=== PATIENT | male | born 1950 | race Caucasian/White ===

== ENCOUNTER 2017-08-28 11:13 | Emergency (ER) | payer OTHER ==
[~2017-08-28] VITALS: Ht 188 cm; Wt 99.8 kg
[~2017-08-28 11:13] MED LIST: AMIT10 PO; ASPI81EC PO; Cardura8 MG PO; Coumadin5 MG PO; DICL75ER PO; DOXA1 PO; FLUO20 PO; LEVSOD50 PO; LISI20 PO; LISI5 PO; ONDA8ODT MM; PANT40 PO; PREG50 PO; SAW PALMETTO PO; SUMA25 PO; Synthroid25 MCG PO; TERA5 PO; TRAZ50 PO; WARF5 PO; WARF7.5 PO
[2017-08-28 12:21] LABS: BASOPHILS ABSOLUTE AUTO 0.02 K/mm3 (0.00-0.23); BASOPHILS PERCENT AUTO 0 % (0-2); EOSINOPHILS ABSOLUTE AUTO 0.01 K/mm3 (0.00-0.68); EOSINOPHILS PERCENT AUTO 0 % (0-6); Hematocrit 41.1 % (37.0-53.0); Hemoglobin 13.5 g/dL (13.5-17.5); IMMATURE GRAN ABSOLUTE AUTO 0.03 K/mm3 (0.00-0.10); IMMATURE GRAN PERCENT AUTO 0 % (0-1); LYMPHOCYTES PERCENT AUTO 18 % (21-46); MONOCYTES ABSOLUTE AUTO 0.57 K/mm3 (0.16-1.47); MONOCYTES PERCENT AUTO 7 % (4-13); Mean Corpuscular HGB 27.6 pg (26.0-34.0); Mean Corpuscular HGB Conc 32.8 g/dL (31.5-36.5); Mean Corpuscular Volume 84 fL (80-100); Mean Platelet Volume 8.8 fL (9.1-12.4); NEUTROPHILS ABSOLUTE AUTO 6.36 K/mm3 (1.96-9.15); NEUTROPHILS PERCENT AUTO 75 % (41-73); Platelet Count 227 K/mm3 (150-400); RDW Coefficient Variation 14.7 % (11.7-14.2); RDW Standard Deviation 44.1 fL (35.1-46.3); White Blood Cell Count 8.49 K/mm3 (4.00-11.30)
[2017-08-28 12:37] LABS: International Normalized Ratio 1.91; Prothrombin Time Results 20.3 Sec (9.7-11.5)
[2017-08-28 12:45] LABS: Alanine Aminotransfer (ALT/SGP 18 U/L (12-78); Albumin, Blood 3.4 g/dL (3.4-5.0); Alk Phos 59 U/L (50-136); Anion Gap 8 mmol/L (6-16); Aspartate Aminotrans (AST/SGOT 10 U/L (12-37); Bilirubin, Total 0.5 mg/dL (0.1-1.0); Blood Urea Nitrogen 17 mg/dL (8-24); Bun/Creatinine Ratio 16.3 (12.0-20.0); CO2, Blood 22 mmol/L (21-32); Calcium, Blood 8.3 mg/dL (8.5-10.1); Chloride, Blood 111 mmol/L (98-108); Creatinine, Blood 1.04 mg/dL (0.60-1.20); Globulin, Blood 3.5 g/dL (2.2-4.0); Glomerular Filtration Rate >60 (60-); Glucose, Blood 124 mg/dL (70-99); Potassium, Blood 3.9 mmol/L (3.5-5.5); Sodium, Blood 141 mmol/L (136-145); Total Protein, Blood 6.9 g/dL (6.4-8.2)
[2017-08-28 12:46] LABS: Troponin I <0.015 ng/mL (0.000-0.040)
== END 2017-08-28 13:43 | disposition home or self-care (01) ==
LOC: ER 11:13
PROVIDERS: Emergency Medicine
DX: F41.9 Anxiety disorder, unspecified (principal); R79.1 Abnormal coagulation profile; I10 Essential (primary) hypertension; Z88.8 Allergy status to other drugs, medicaments and biological substances; Z91.030 Bee allergy status; Z79.899 Other long term (current) drug therapy; Z79.01 Long term (current) use of anticoagulants
CPT/HCPCS: 36415; 71046; 80053; 83880; 84484; 85025; 85610; 85730; 93005; 93010; 99284

== ENCOUNTER → 2018-04-23 | Outpatient (CLI) | payer OTHER | END | disposition home or self-care (01) | LOC: PLD 14:10 → LAB SHORT 14:10 | DX: C44.310 Basal cell carcinoma of skin of unspecified parts of face (principal) | CPT/HCPCS: 88305 ==

== ENCOUNTER 2018-06-23 13:00 | Emergency (ER) | payer OTHER ==
[~2018-06-23] VITALS: Ht 188 cm; Wt 90.7 kg
[2018-06-23 14:47] LABS: BASOPHILS ABSOLUTE AUTO 0.04 K/mm3 (0.00-0.23); BASOPHILS PERCENT AUTO 1 % (0-2); EOSINOPHILS ABSOLUTE AUTO 0.09 K/mm3 (0.00-0.68); EOSINOPHILS PERCENT AUTO 1 % (0-6); Hematocrit 45.7 % (37.0-53.0); Hemoglobin 14.9 g/dL (13.5-17.5); IMMATURE GRAN ABSOLUTE AUTO 0.02 K/mm3 (0.00-0.10); IMMATURE GRAN PERCENT AUTO 0 % (0-1); LYMPHOCYTES ABSOLUTE AUTO 1.53 K/mm3 (0.84-5.20); LYMPHOCYTES PERCENT AUTO 23 % (21-46); MONOCYTES ABSOLUTE AUTO 0.54 K/mm3 (0.16-1.47); MONOCYTES PERCENT AUTO 8 % (4-13); Mean Corpuscular HGB 28.1 pg (26.0-34.0); Mean Corpuscular HGB Conc 32.6 g/dL (31.5-36.5); Mean Corpuscular Volume 86 fL (80-100); Mean Platelet Volume 8.4 fL (9.1-12.4); NEUTROPHILS ABSOLUTE AUTO 4.31 K/mm3 (1.96-9.15); NEUTROPHILS PERCENT AUTO 66 % (41-73); Platelet Count 248 K/mm3 (150-400); RDW Coefficient Variation 13.7 % (11.7-14.2); RDW Standard Deviation 43.3 fL (35.1-46.3); Red Blood Cell Count 5.31 M/mm3 (4.30-5.90); White Blood Cell Count 6.53 K/mm3 (4.00-11.30)
[2018-06-23 15:01] LABS: International Normalized Ratio 2.13; Prothrombin Time Results 21.1 Sec (9.7-11.5)
[2018-06-23 15:07] LABS: Alanine Aminotransfer (ALT/SGP 19 U/L (12-78); Albumin/Globulin Ratio 1.1 (0.8-1.8); Alk Phos 76 U/L (50-136); Anion Gap 8 mmol/L (6-16); Aspartate Aminotrans (AST/SGOT 12 U/L (12-37); Bilirubin, Total 0.4 mg/dL (0.1-1.0); Blood Urea Nitrogen 15 mg/dL (8-24); Bun/Creatinine Ratio 14.2 (12.0-20.0); CO2, Blood 23 mmol/L (21-32); Chloride, Blood 108 mmol/L (98-108); Creatinine, Blood 1.06 mg/dL (0.60-1.20); Globulin, Blood 3.8 g/dL (2.2-4.0); Glomerular Filtration Rate >60 (60-); Glucose, Blood 100 mg/dL (70-99); Potassium, Blood 4.2 mmol/L (3.5-5.5); Sodium, Blood 139 mmol/L (136-145); Total Protein, Blood 7.8 g/dL (6.4-8.2)
[2018-06-23] MEDS ORDERED: MONT4 PO (15:42)
[2018-06-23] MEDS ORDERED: Norco 5-325 Ta1 EACH PO (16:06)
[2018-06-23] MEDS ORDERED: Valium5 MG PO (16:06)
== END 2018-06-23 16:20 | disposition home or self-care (01) ==
LOC: ER 13:00
PROVIDERS: Physician Assistant
DX: J06.9 Acute upper respiratory infection, unspecified (principal); M54.89 Other dorsalgia; I10 Essential (primary) hypertension; Z79.899 Other long term (current) drug therapy; Z79.01 Long term (current) use of anticoagulants
CPT/HCPCS: 36415; 71046; 80053; 85025; 85379; 85610; 93005; 93010; 99285-25

== ENCOUNTER → 2018-10-23 | Outpatient (CLI) | payer OTHER ==
[~2018-10-23] MED LIST changes: +CIPR500 PO; +Imitrex100 MG PO; +Kristalose20 GM PO; +MIRALAX17 GM PO; +MONT10T PO; +MONT4 PO; +Norco 5-325 Ta1 EACH PO; +Valium5 MG PO
== END | disposition home or self-care (01) ==
LOC: LAB 11:55 → LAB SHORT 11:55
DX: R39.11 Hesitancy of micturition (principal)
CPT/HCPCS: 87077; 87086; 87186

== ENCOUNTER 2018-10-25 08:42 | Emergency (ER) | payer OTHER ==
[~2018-10-25] VITALS: Ht 188 cm; Wt 90.7 kg
[~2018-10-25 08:42] MED LIST changes: -CIPR500 PO; -Imitrex100 MG PO; -Kristalose20 GM PO; -MIRALAX17 GM PO; -MONT10T PO
[2018-10-25 09:44] LABS: Source, Urine Clean Catch
[2018-10-25 09:49] LABS: Bilirubin, Urine Neg (Neg); Blood, Urine 3+ (Neg); Glucose Qualitative, Urine Neg (Neg); Ketones, Urine Neg (Neg); Leukocyte Esterase, Urine Neg (Neg); Nitrite, Urine Neg (Neg); Protein, Urine 2+ (Neg); Specific Gravity, Urine 1.015 (1.003-1.022); Urobilinogen, Urine NORM (Normal)
[2018-10-25 09:54] LABS: Appearance, Urine Clear (Clear); Color, Urine Yellow (P-Yellow)
[2018-10-25 09:57] LABS: Squamous Epithelial Cells Rare /hpf (Few)
[2018-10-25 09:58] LABS: Bacteria Rare /hpf
[2018-10-25] MEDS ORDERED: CIPR500 PO (10:51)
[2018-10-25] MEDS ORDERED: MIRALAX17 GM PO (10:53)
[2018-10-25] MEDS ORDERED: Kristalose20 GM PO (10:53)
[2019-01-08] MEDS ORDERED: Imitrex100 MG PO (09:17)
[2019-01-08] MEDS ORDERED: LISI20 PO (09:18)
[2019-01-08] MEDS ORDERED: MONT10T PO (09:18)
== END 2018-10-25 11:15 | disposition home or self-care (01) ==
LOC: ER 08:42
PROVIDERS: Emergency Medicine
DX: N39.0 Urinary tract infection, site not specified (principal); R31.9 Hematuria, unspecified; D68.9 Coagulation defect, unspecified; K59.00 Constipation, unspecified; N40.0 Benign prostatic hyperplasia without lower urinary tract symptoms; I10 Essential (primary) hypertension; Z91.038 Other insect allergy status; Z88.8 Allergy status to other drugs, medicaments and biological substances; Z79.01 Long term (current) use of anticoagulants; Z79.899 Other long term (current) drug therapy; Z86.711 Personal history of pulmonary embolism; Z86.718 Personal history of other venous thrombosis and embolism
CPT/HCPCS: 51798; 81001; 87086; 99283-25

== ENCOUNTER 2019-01-23 09:55 | Day surgery (SDC) | payer OTHER ==
[~2019-01-23] VITALS: Ht 188 cm; Wt 83.1 kg
[~2019-01-23 09:55] MED LIST changes: +CIPR500 PO; +Imitrex100 MG PO; +Kristalose20 GM PO; +MIRALAX17 GM PO; +MONT10T PO
--- NOTE | 2019-01-23 13:22 | NUR ---
01/23/19 1321 Guera Gutierrez CALLED AND LEFT VOICEMAIL AT DR IYER OFFICE THAT PT IS TO COME IN AT [address] GOLDSMITH FOR DRAIN REMOVAL. . PT IS NOTIFIED WELL.
== END 2019-01-23 13:42 | disposition home or self-care (01) ==
LOC: ORSCSDS 09:55
PROVIDERS: Orthopaedic Surgery
PROC: 0JBG0ZZ Excision of Right Lower Arm Subcutaneous Tissue and Fascia, Open Approach (ICD-10-PCS; principal; 2019-01-23 11:15)
DX: M25.511 Pain in right shoulder (principal); D17.9 Benign lipomatous neoplasm, unspecified; I10 Essential (primary) hypertension; Z79.899 Other long term (current) drug therapy; Z79.01 Long term (current) use of anticoagulants
CPT/HCPCS: 88304; J0690; J1100; J2250; J2370; J2405; J2704; J2710; J3010; J7120

== ENCOUNTER → 2019-02-23 | Outpatient (CLI) | payer OTHER | END | disposition home or self-care (01) | LOC: LAB SHORT 07:59 → PLD 07:59 | DX: D48.5 Neoplasm of uncertain behavior of skin (principal) | CPT/HCPCS: 88305 ==

== ENCOUNTER → 2019-03-17 | Outpatient (CLI) | payer OTHER | END | disposition home or self-care (01) | LOC: LAB SHORT 09:11 → PLD 09:11 | DX: C44.311 Basal cell carcinoma of skin of nose (principal) | CPT/HCPCS: 88305 ==

== ENCOUNTER 2019-07-21 12:24 | Emergency (ER) | payer OTHER ==
[~2019-07-21] VITALS: Ht 188 cm; Wt 90.7 kg
[2019-07-21 13:08] LABS: BASOPHILS ABSOLUTE AUTO 0.03 K/mm3 (0.00-0.23); BASOPHILS PERCENT AUTO 1 % (0-2); EOSINOPHILS ABSOLUTE AUTO 0.19 K/mm3 (0.00-0.68); EOSINOPHILS PERCENT AUTO 4 % (0-6); Hematocrit 42.5 % (37.0-53.0); IMMATURE GRAN ABSOLUTE AUTO 0.01 K/mm3 (0.00-0.10); IMMATURE GRAN PERCENT AUTO 0 % (0-1); LYMPHOCYTES ABSOLUTE AUTO 1.41 K/mm3 (0.84-5.20); LYMPHOCYTES PERCENT AUTO 31 % (21-46); MONOCYTES ABSOLUTE AUTO 0.44 K/mm3 (0.16-1.47); MONOCYTES PERCENT AUTO 10 % (4-13); Mean Corpuscular HGB 28.4 pg (26.0-34.0); Mean Corpuscular HGB Conc 32.9 g/dL (31.5-36.5); Mean Corpuscular Volume 86 fL (80-100); Mean Platelet Volume 9.1 fL (9.1-12.4); NEUTROPHILS PERCENT AUTO 55 % (41-73); Platelet Count 192 K/mm3 (150-400); RDW Coefficient Variation 13.3 % (11.7-14.2); RDW Standard Deviation 41.8 fL (35.1-46.3); Red Blood Cell Count 4.93 M/mm3 (4.30-5.90); White Blood Cell Count 4.58 K/mm3 (4.00-11.30)
[2019-07-21 13:27] LABS: International Normalized Ratio 2.47; Prothrombin Time Results 25.1 Sec (9.7-11.5)
[2019-07-21 13:32] LABS: Alanine Aminotransfer (ALT/SGP 24 U/L (12-78); Albumin, Blood 3.9 g/dL (3.4-5.0); Albumin/Globulin Ratio 1.2 (0.8-1.8); Alk Phos 67 U/L (50-136); Anion Gap 4 mmol/L (6-16); Aspartate Aminotrans (AST/SGOT 17 U/L (12-37); Bilirubin, Total 0.3 mg/dL (0.1-1.0); Blood Urea Nitrogen 18 mg/dL (8-24); Bun/Creatinine Ratio 14.9 (12.0-20.0); CO2, Blood 27 mmol/L (21-32); Calcium, Blood 8.5 mg/dL (8.5-10.1); Chloride, Blood 109 mmol/L (98-108); Creatinine, Blood 1.21 mg/dL (0.60-1.20); Globulin, Blood 3.3 g/dL (2.2-4.0); Glomerular Filtration Rate >60 (60-); Glucose, Blood 107 mg/dL (70-99); Potassium, Blood 3.9 mmol/L (3.5-5.5); Sodium, Blood 140 mmol/L (136-145); Total Protein, Blood 7.2 g/dL (6.4-8.2)
== END 2019-07-21 14:58 | disposition home or self-care (01) ==
LOC: ER 12:24
PROVIDERS: Emergency Medicine
DX: R00.2 Palpitations (principal); R06.02 Shortness of breath; Z91.038 Other insect allergy status; Z88.8 Allergy status to other drugs, medicaments and biological substances; Z79.01 Long term (current) use of anticoagulants; Z79.899 Other long term (current) drug therapy; I10 Essential (primary) hypertension; Z86.718 Personal history of other venous thrombosis and embolism
CPT/HCPCS: 36415; 71045; 80053; 84443; 84484; 85025; 85610; 85730; 93005; 93010; 99285-25

== ENCOUNTER → 2020-08-31 | Outpatient (CLI) | payer OTHER ==
[~2020-08-31] MED LIST changes: -Coumadin5 MG PO; +TELMISARTAN40 MG PO; +WARF4 PO
== END ==
LOC: LAB 11:09 → LAB SHORT 11:09
DX: D48.5 Neoplasm of uncertain behavior of skin (principal); C44.629 Squamous cell carcinoma of skin of left upper limb, including shoulder
CPT/HCPCS: 88305

== ENCOUNTER → 2020-10-05 | Outpatient (CLI) | payer OTHER | END | disposition home or self-care (01) | LOC: LAB SHORT 14:35 | DX: C44.629 Squamous cell carcinoma of skin of left upper limb, including shoulder (principal) | CPT/HCPCS: 88305 ==

== ENCOUNTER → 2021-04-25 | Outpatient (CLI) | payer OTHER | LOC: LAB 08:36 → LAB SHORT 08:36 | DX: D48.5 Neoplasm of uncertain behavior of skin (principal); C44.319 Basal cell carcinoma of skin of other parts of face | CPT/HCPCS: 88305 ==

== ENCOUNTER 2021-05-23 20:02 | Emergency (ER) | payer OTHER ==
[~2021-05-23] VITALS: Ht 188 cm; Wt 99.8 kg
[~2021-05-23 20:02] MED LIST changes: +ACET325 PO; +CATAPRES-TTS 11 EAC1 TOP; +CHLO25B PO; +JANTOVEN5 M2; +LEVFLO500 PO; +MIRT30ST PO
[2021-05-23 20:27] LABS: BASOPHILS ABSOLUTE AUTO 0.04 K/mm3 (0.00-0.23); BASOPHILS PERCENT AUTO 1 % (0-2); EOSINOPHILS ABSOLUTE AUTO 0.13 K/mm3 (0.00-0.68); EOSINOPHILS PERCENT AUTO 2 % (0-6); Hematocrit 42.4 % (37.0-53.0); Hemoglobin 14.5 g/dL (13.5-17.5); IMMATURE GRAN ABSOLUTE AUTO 0.04 K/mm3 (0.00-0.10); IMMATURE GRAN PERCENT AUTO 1 % (0-1); LYMPHOCYTES ABSOLUTE AUTO 1.49 K/mm3 (0.84-5.20); LYMPHOCYTES PERCENT AUTO 20 % (21-46); MONOCYTES ABSOLUTE AUTO 0.75 K/mm3 (0.16-1.47); MONOCYTES PERCENT AUTO 10 % (4-13); Mean Corpuscular HGB Conc 34.2 g/dL (31.5-36.5); Mean Corpuscular Volume 85 fL (80-100); Mean Platelet Volume 8.5 fL (9.1-12.4); NEUTROPHILS ABSOLUTE AUTO 5.09 K/mm3 (1.96-9.15); NEUTROPHILS PERCENT AUTO 68 % (41-73); Platelet Count 247 K/mm3 (150-400); RDW Coefficient Variation 12.9 % (11.7-14.2); White Blood Cell Count 7.54 K/mm3 (4.00-11.30)
[2021-05-23 20:48] LABS: Alanine Aminotransfer (ALT/SGP 33 U/L (12-78); Albumin, Blood 3.8 g/dL (3.4-5.0); Alk Phos 75 U/L (50-136); Anion Gap 6 mmol/L (6-16); Aspartate Aminotrans (AST/SGOT 22 U/L (12-37); Bilirubin, Total 0.4 mg/dL (0.1-1.0); Blood Urea Nitrogen 16 mg/dL (8-24); Bun/Creatinine Ratio 15.5 (12.0-20.0); CO2, Blood 25 mmol/L (21-32); Calcium, Blood 8.8 mg/dL (8.5-10.1); Chloride, Blood 100 mmol/L (98-108); Creatinine, Blood 1.03 mg/dL (0.60-1.20); Globulin, Blood 3.8 g/dL (2.2-4.0); Glomerular Filtration Rate >60 (60-); Glucose, Blood 122 mg/dL (70-99); Potassium, Blood 3.7 mmol/L (3.5-5.5); Sodium, Blood 131 mmol/L (136-145); Total Protein, Blood 7.6 g/dL (6.4-8.2)
[2021-05-23 21:05] LABS: International Normalized Ratio 2.14; Prothrombin Time Results 21.4 Sec (9.7-11.5)
[2021-05-23 21:21] LABS: D-Dimer, Quantitative <0.19 mg/L FEU (0.00-0.52)
[2021-05-23 22:13] LABS: Influenza A, PCR NEGATIVE (NEGATIVE); Influenza B, PCR NEGATIVE (NEGATIVE); Resp Syncytial Virus, PCR NEGATIVE (NEGATIVE); SARS-Cov-2 (COVID-19) PCR, MMC NEGATIVE (NEGATIVE)
[2021-05-23 23:04] LABS: CPK Creatine Kinase 38 U/L (39-308)
[2021-05-23 23:10] LABS: Creatine Kinase MB <1.0 ng/mL (0.0-3.6); Creatine Kinase MB Index Unable to Calculate (0.0-4.0)
== END 2021-05-23 23:38 | disposition home or self-care (01) ==
LOC: ER 20:02
PROVIDERS: Emergency Medicine; Physician Assistant
DX: R07.89 Other chest pain (principal); R06.02 Shortness of breath; I10 Essential (primary) hypertension; Z88.8 Allergy status to other drugs, medicaments and biological substances; Z91.038 Other insect allergy status; Z79.899 Other long term (current) drug therapy; Z79.01 Long term (current) use of anticoagulants; Z86.711 Personal history of pulmonary embolism; Z20.822 Contact with and (suspected) exposure to COVID-19
CPT/HCPCS: 0241U; 36415; 71045; 80053; 82550; 82553; 83880; 84484; 85025; 85379; 85610; 85730; 93005; 93010; 99285-25; A9270

== ENCOUNTER 2021-06-08 16:07 | Emergency (ER) | payer OTHER ==
[~2021-06-08] VITALS: Ht 188 cm; Wt 86.2 kg
[2021-06-08 16:27] LABS: BASOPHILS ABSOLUTE AUTO 0.03 K/mm3 (0.00-0.23); BASOPHILS PERCENT AUTO 0 % (0-2); EOSINOPHILS ABSOLUTE AUTO 0.24 K/mm3 (0.00-0.68); EOSINOPHILS PERCENT AUTO 3 % (0-6); Hematocrit 42.8 % (37.0-53.0); Hemoglobin 14.4 g/dL (13.5-17.5); IMMATURE GRAN ABSOLUTE AUTO 0.02 K/mm3 (0.00-0.10); IMMATURE GRAN PERCENT AUTO 0 % (0-1); LYMPHOCYTES ABSOLUTE AUTO 1.82 K/mm3 (0.84-5.20); LYMPHOCYTES PERCENT AUTO 25 % (21-46); MONOCYTES ABSOLUTE AUTO 0.68 K/mm3 (0.16-1.47); MONOCYTES PERCENT AUTO 9 % (4-13); Mean Corpuscular HGB 28.5 pg (26.0-34.0); Mean Corpuscular HGB Conc 33.6 g/dL (31.5-36.5); Mean Corpuscular Volume 85 fL (80-100); Mean Platelet Volume 8.4 fL (9.1-12.4); NEUTROPHILS ABSOLUTE AUTO 4.46 K/mm3 (1.96-9.15); NEUTROPHILS PERCENT AUTO 62 % (41-73); Platelet Count 253 K/mm3 (150-400); RDW Coefficient Variation 12.8 % (11.7-14.2); RDW Standard Deviation 39.1 fL (35.1-46.3); Red Blood Cell Count 5.05 M/mm3 (4.30-5.90); White Blood Cell Count 7.25 K/mm3 (4.00-11.30)
[2021-06-08] MEDS ORDERED: VERAPAMIL PO (16:28)
[2021-06-08] MEDS ORDERED: HYDR10 PO (16:28)
[2021-06-08] MEDS ORDERED: DOXAZOSIN MESYLA8 M2 PO (16:28)
[2021-06-08] MEDS ORDERED: CHLO25B PO (16:30)
[2021-06-08] MEDS ORDERED: LOSA50 PO (16:31)
[2021-06-08 16:48] LABS: Alanine Aminotransfer (ALT/SGP 21 U/L (12-78); Albumin, Blood 3.8 g/dL (3.4-5.0); Albumin/Globulin Ratio 1.1 (0.8-1.8); Alk Phos 80 U/L (50-136); Anion Gap 6 mmol/L (6-16); Aspartate Aminotrans (AST/SGOT 14 U/L (12-37); Bilirubin, Total 0.6 mg/dL (0.1-1.0); Blood Urea Nitrogen 11 mg/dL (8-24); CO2, Blood 23 mmol/L (21-32); Calcium, Blood 8.8 mg/dL (8.5-10.1); Chloride, Blood 102 mmol/L (98-108); Globulin, Blood 3.6 g/dL (2.2-4.0); Glomerular Filtration Rate >60 (60-); Glucose, Blood 111 mg/dL (70-99); Sodium, Blood 131 mmol/L (136-145); Total Protein, Blood 7.4 g/dL (6.4-8.2)
== END 2021-06-08 17:40 | disposition home or self-care (01) ==
LOC: ER 16:07
PROVIDERS: Emergency Medicine
DX: R07.9 Chest pain, unspecified (principal); I10 Essential (primary) hypertension; E03.9 Hypothyroidism, unspecified; Z79.899 Other long term (current) drug therapy; Z88.8 Allergy status to other drugs, medicaments and biological substances; Z91.048 Other nonmedicinal substance allergy status
CPT/HCPCS: 71045; 80053; 83880; 84484; 85025; 93005; 93010; 99285-25

== ENCOUNTER 2021-07-11 08:38 | Day surgery (SDC) | payer OTHER ==
[~2021-07-11] VITALS: Ht 188 cm; Wt 99.0 kg
[~2021-07-11 08:38] MED LIST changes: +DOXAZOSIN MESYLA8 M2 PO; +HYDR10 PO; +LOSA50 PO; +VERAPAMIL PO
[2021-07-11] MEDS ORDERED: ZESTRIL40 M2 PO (09:24)
[2021-07-11 09:42] LABS: BASOPHILS ABSOLUTE AUTO 0.03 K/mm3 (0.00-0.23); BASOPHILS PERCENT AUTO 0 % (0-2); EOSINOPHILS PERCENT AUTO 3 % (0-6); Hematocrit 43.4 % (37.0-53.0); Hemoglobin 14.2 g/dL (13.5-17.5); IMMATURE GRAN ABSOLUTE AUTO 0.02 K/mm3 (0.00-0.10); IMMATURE GRAN PERCENT AUTO 0 % (0-1); LYMPHOCYTES ABSOLUTE AUTO 1.43 K/mm3 (0.84-5.20); LYMPHOCYTES PERCENT AUTO 19 % (21-46); MONOCYTES ABSOLUTE AUTO 0.62 K/mm3 (0.16-1.47); MONOCYTES PERCENT AUTO 8 % (4-13); Mean Corpuscular HGB 28.4 pg (26.0-34.0); Mean Corpuscular HGB Conc 32.7 g/dL (31.5-36.5); Mean Corpuscular Volume 87 fL (80-100); Mean Platelet Volume 8.5 fL (9.1-12.4); NEUTROPHILS ABSOLUTE AUTO 5.12 K/mm3 (1.96-9.15); NEUTROPHILS PERCENT AUTO 69 % (41-73); Platelet Count 243 K/mm3 (150-400); RDW Coefficient Variation 12.9 % (11.7-14.2); RDW Standard Deviation 40.5 fL (35.1-46.3); White Blood Cell Count 7.42 K/mm3 (4.00-11.30)
[2021-07-11 09:54] LABS: Anion Gap 4 mmol/L (6-16); Blood Urea Nitrogen 13 mg/dL (8-24); Bun/Creatinine Ratio 12.3 (12.0-20.0); CO2, Blood 26 mmol/L (21-32); Calcium, Blood 8.7 mg/dL (8.5-10.1); Chloride, Blood 109 mmol/L (98-108); Creatinine, Blood 1.06 mg/dL (0.60-1.20); Glomerular Filtration Rate >60 (60-); Glucose, Blood 120 mg/dL (70-99); Potassium, Blood 3.9 mmol/L (3.5-5.5); Sodium, Blood 139 mmol/L (136-145)
--- NOTE | 2021-07-11 12:03 | NUR ---
PT TO RECOVERY ROOM POST PROCEDURE. PT A&Ox4. RADIAL TR BAND TO R WRIST. 10cc IN BAND. BLEEDING CONTROLLED. PT PLACED ON MONITOR. REPEAT VS. PT RESTING IN BED.
--- NOTE | 2021-07-11 13:48 | NUR ---
2cc TAKEN OUT OF TR BAND. PAIGE BLEEDING NOTED. PT DENIES PAIN. SITE AROUND TR BAND SOFT AND NON-TENDER. PT RESTING IN BED AND TALKING ON PHONE.
--- NOTE | 2021-07-11 14:08 | NUR ---
PT GIVEN URINAL TO USE AT BEDSIDE.
--- NOTE | 2021-07-11 14:18 | NUR ---
TR BAND FULLY DEFLATED. NO BLEEDING NOTED. SKIN AROUND ACCESS SITE SOFT AND NON-TENDER. ARM BOARD REMAINS IN PLACE. PT RESTING IN BED MAKING SLIGHT ADJUSTMENTS NEEDED FOR COMFORT.
--- NOTE | 2021-07-11 15:12 | NUR ---
pt given dc instructions and verbalized understanding. cloth dot dressing applied to r radial access site. arm board applied to r wrist. sling applied to r arm. piv out and cath in place. pt dressed w/o assistance. pt called [employer]-a-[employer] for ride home. pt taken to curb via own wc.
== END 2021-07-11 15:05 | disposition home or self-care (01) ==
LOC: MHTC 08:38
PROVIDERS: Internal Medicine Cardiovascular Disease
DX: R07.9 Chest pain, unspecified (principal); I25.10 Atherosclerotic heart disease of native coronary artery without angina pectoris; I25.82 Chronic total occlusion of coronary artery; R06.00 Dyspnea, unspecified; R53.83 Other fatigue; R94.39 Abnormal result of other cardiovascular function study; I12.9 Hypertensive chronic kidney disease with stage 1 through stage 4 chronic kidney disease, or unspecified chronic kidney disease; N18.9 Chronic kidney disease, unspecified; E03.9 Hypothyroidism, unspecified; N40.0 Benign prostatic hyperplasia without lower urinary tract symptoms; Z88.8 Allergy status to other drugs, medicaments and biological substances; Z88.6 Allergy status to analgesic agent; Z88.5 Allergy status to narcotic agent; Z86.718 Personal history of other venous thrombosis and embolism; Z86.711 Personal history of pulmonary embolism; Z82.49 Family history of ischemic heart disease and other diseases of the circulatory system; Z79.01 Long term (current) use of anticoagulants
CPT/HCPCS: 80048; 85025; 93454; 99152; 99153; C1769; C1887; C1894; J1644; J2250; J3010; J7030; J7050; Q9967

== ENCOUNTER → 2021-12-23 | Outpatient (CLI) | payer OTHER ==
[~2021-12-23] MED LIST changes: +ZESTRIL40 M2 PO
[2021-12-26 12:19] LABS: Stool Occult Bld Immuno 1 Negative (NEGATIVE)
== END | disposition home or self-care (01) ==
LOC: LAB SHORT 09:10
PROVIDERS: Registered Nurse
DX: Z12.11 Encounter for screening for malignant neoplasm of colon (principal)
CPT/HCPCS: G0328

== ENCOUNTER 2022-01-15 17:35 | Emergency (ER) | payer OTHER ==
[~2022-01-15] VITALS: Ht 188 cm; Wt 95.2 kg
[2022-01-15 18:33] LABS: BASOPHILS ABSOLUTE AUTO 0.03 K/mm3 (0.00-0.23); BASOPHILS PERCENT AUTO 1 % (0-2); EOSINOPHILS ABSOLUTE AUTO 0.22 K/mm3 (0.00-0.68); EOSINOPHILS PERCENT AUTO 4 % (0-6); Hematocrit 39.8 % (37.0-53.0); Hemoglobin 12.8 g/dL (13.5-17.5); IMMATURE GRAN ABSOLUTE AUTO 0.01 K/mm3 (0.00-0.10); IMMATURE GRAN PERCENT AUTO 0 % (0-1); LYMPHOCYTES ABSOLUTE AUTO 1.58 K/mm3 (0.84-5.20); LYMPHOCYTES PERCENT AUTO 26 % (21-46); MONOCYTES ABSOLUTE AUTO 0.54 K/mm3 (0.16-1.47); MONOCYTES PERCENT AUTO 9 % (4-13); Mean Corpuscular HGB 26.4 pg (26.0-34.0); Mean Corpuscular HGB Conc 32.2 g/dL (31.5-36.5); Mean Corpuscular Volume 82 fL (80-100); Mean Platelet Volume 8.7 fL (9.1-12.4); NEUTROPHILS ABSOLUTE AUTO 3.77 K/mm3 (1.96-9.15); NEUTROPHILS PERCENT AUTO 61 % (41-73); Platelet Count 201 K/mm3 (150-400); RDW Coefficient Variation 15.9 % (11.7-14.2); RDW Standard Deviation 47.8 fL (35.1-46.3); Red Blood Cell Count 4.85 M/mm3 (4.30-5.90); White Blood Cell Count 6.15 K/mm3 (4.00-11.30)
[2022-01-15 18:56] LABS: Albumin, Blood 3.8 g/dL (3.4-5.0); Bilirubin, Total 0.4 mg/dL (0.1-1.0); Bun/Creatinine Ratio 18.9 (12.0-20.0); Calcium, Blood 9.3 mg/dL (8.5-10.1); Creatinine, Blood 1.06 mg/dL (0.60-1.20); Globulin, Blood 3.8 g/dL (2.2-4.0); Potassium, Blood 4.2 mmol/L (3.5-5.5); Total Protein, Blood 7.6 g/dL (6.4-8.2)
[2022-01-15 19:09] LABS: Source, Urine Clean Catch
[2022-01-15 19:12] LABS: Appearance, Urine Clear (Clear); Bilirubin, Urine Neg (Neg); Blood, Urine 1+ (Neg); Color, Urine Yellow (P-Yellow); Glucose Qualitative, Urine Neg (Neg); Ketones, Urine Neg (Neg); Leukocyte Esterase, Urine 2+ (Neg); Nitrite, Urine Neg (Neg); Protein, Urine Neg (Neg); Urobilinogen, Urine NORM (Normal)
[2022-01-15 19:29] LABS: Bacteria Few /hpf; Red Blood Cells, Urine 0-2 /hpf (0-2); Squamous Epithelial Cells Not Seen /hpf (Few)
[2022-01-15] MEDS ORDERED: CARVEDILOL6.25 MG PO (20:40)
[2022-01-15] MEDS ORDERED: NITROGLYCERIN0.4 M3 SL (20:41)
[2022-01-15] MEDS ORDERED: NYSTATIN500000 UNI PO (20:41)
[2022-01-15] MEDS ORDERED: ATOR40TA PO (20:41)
[2022-01-15] MEDS ORDERED: ELIQUIS5 M3 PO (20:42)
== END 2022-01-15 23:30 | disposition home or self-care (01) ==
LOC: ER 17:35
PROVIDERS: Physician Assistant
DX: I10 Essential (primary) hypertension (principal); E03.9 Hypothyroidism, unspecified; Z88.8 Allergy status to other drugs, medicaments and biological substances; Z79.899 Other long term (current) drug therapy
CPT/HCPCS: 36415; 80053; 81001; 83690; 84484; 85025; 87086; 93005; 93010; 99283-25

== ENCOUNTER 2022-03-09 15:34 | Emergency (ER) | payer OTHER ==
[~2022-03-09] VITALS: Ht 188 cm; Wt 90.7 kg
[~2022-03-09 15:34] MED LIST changes: +ATOR40TA PO; +CARVEDILOL6.25 MG PO; +ELIQUIS5 M3 PO; +NITROGLYCERIN0.4 M3 SL; +NYSTATIN500000 UNI PO
== END 2022-03-09 16:22 | disposition home or self-care (01) ==
LOC: ER 15:34
DX: I10 Essential (primary) hypertension (principal); E03.9 Hypothyroidism, unspecified; Z79.899 Other long term (current) drug therapy; Z79.890 Hormone replacement therapy; Z79.01 Long term (current) use of anticoagulants; Z88.6 Allergy status to analgesic agent; Z88.8 Allergy status to other drugs, medicaments and biological substances; Z91.030 Bee allergy status
CPT/HCPCS: 99283

== ENCOUNTER → 2023-02-11 | Outpatient (CLI) | payer OTHER | END | disposition home or self-care (01) | LOC: LAB SHORT 13:14 → PLD 13:14 | DX: C44.219 Basal cell carcinoma of skin of left ear and external auricular canal (principal); C44.319 Basal cell carcinoma of skin of other parts of face | CPT/HCPCS: 88305 ==

== ENCOUNTER → 2024-06-22 | Outpatient (CLI) | payer OTHER | LOC: LAB 13:40 → LAB SHORT 13:40 | DX: L03.114 Cellulitis of left upper limb (principal) | CPT/HCPCS: 87070; 87077; 87147; 87186; 87205 ==

== ENCOUNTER 2024-08-17 08:52 | Day surgery (SDC) | payer OTHER ==
[~2024-08-17] VITALS: Ht 188 cm; Wt 96.0 kg
[2024-08-17] VITALS (21 sets, daily range): BP systolic 100–139; BP diastolic 65–95
[~2024-08-17 08:52] MED LIST changes: +AMLO5; +Lactated Ringer's 1,000 ML IV SCH; +METO25ER PO; +SILD25T PO
--- NOTE | 2024-08-17 09:54 | NUR ---
History, Chart, Medications and Allergies reviewed before start of procedure. Ambulatory in Day Surgery. Patient confirms NPO status and agrees with scheduled surgery. Patient States Post-Procedure ride home has been arranged. Pre-Op teaching done. Pt verbalizes understanding.
[2024-08-17] MEDS ORDERED: propofoL 40 ML IV ONE (10:00)
--- NOTE | 2024-08-17 10:17 | NUR ---
08/17/24 1017 William Puga CONFIRMED AND REVIEWED H&P, MEDCICATIONS, ALLERGIES, MEDICAL HISTORY, RESPIRATORY HISTORY, VITAL SIGNS, 3-LEAD EKG, CONSENTS, AND PHYSICIAN ORDERS. PATIENT CONFIRMS NPO STATUS AND AGREES WITH SCHEDULED PROCEDURE. MONITOR INTACT WITH CONTINUOUS PULSE OXIMETRY, CAPNOGRAPHY, 3-LEAD EKG, INTERMITTENT BP. SUPPLEMENTAL O2 TO BE TITRATED THROUGHOUT PROCEDURE TO MAINTAIN O2 SATURATION ABOVE 90%. PATIENT DETERMINED TO BE ASA APPROPRIATE FOR PROPOFOL SEDATION PRIOR TO START OF PROCEDURE BY DR. LONGORIA
--- NOTE | 2024-08-17 11:09 | NUR ---
POST-OP [address] LONGORIA, REPORTS PT MAY DISCHARGE HOME.
--- NOTE | 2024-08-17 11:35 | NUR ---
PT UP TO W/C PER HIS NORMAL PER PT. PT DENIES PAIN,DIZZINESS,CP,SOB. PT REPORTS REAY TO GO HOME. Discharge instructions reviewed with patient. Patient verbalizes understanding. Copy given to patient to take home. Patient States Post-Procedure ride home has been arranged. Discharged via wheelchair to private car for ride home. [address] LONGORIA PRIOR TO PT'S DISCHARGE, REPORTS PT MAY DISCHARGE HOME. DR LONGORIA REPORTED TO SKIP/3 YEARS.
== END 2024-08-17 11:35 | disposition home or self-care (01) ==
LOC: ORSCMMR 08:52 → ORD 09:30 → ORSCMMR 11:35
PROVIDERS: Internal Medicine Gastroenterology
PROC: 0DBL8ZX Excision of Transverse Colon, Via Natural or Artificial Opening Endoscopic, Diagnostic (ICD-10-PCS; principal; 2024-08-17 09:30)
PROC: 0DBN8ZX Excision of Sigmoid Colon, Via Natural or Artificial Opening Endoscopic, Diagnostic (ICD-10-PCS; principal; 2024-08-17 09:30)
PROC: 0DBM8ZX Excision of Descending Colon, Via Natural or Artificial Opening Endoscopic, Diagnostic (ICD-10-PCS; principal; 2024-08-17 09:30)
PROC: 0DBK8ZX Excision of Ascending Colon, Via Natural or Artificial Opening Endoscopic, Diagnostic (ICD-10-PCS; principal; 2024-08-17 09:30)
DX: Z12.11 Encounter for screening for malignant neoplasm of colon (principal); Z86.0101 Personal history of adenomatous and serrated colon polyps; D12.5 Benign neoplasm of sigmoid colon; D12.4 Benign neoplasm of descending colon; D12.2 Benign neoplasm of ascending colon; D12.3 Benign neoplasm of transverse colon; K63.5 Polyp of colon; I10 Essential (primary) hypertension; E03.9 Hypothyroidism, unspecified; Z86.711 Personal history of pulmonary embolism; Z86.718 Personal history of other venous thrombosis and embolism; I25.2 Old myocardial infarction; Z79.01 Long term (current) use of anticoagulants; Z79.899 Other long term (current) drug therapy
CPT/HCPCS: 88305; J2704; J7120